=== PATIENT | male | born 1940 | race Caucasian/White ===

== ENCOUNTER 2019-04-27 14:15 | Emergency (ER) | payer MEDICARE, SELFPAY ==
[~2019-04-27] VITALS: Ht 170.2 cm; Wt 51.4 kg
[~2019-04-27 14:15] MED LIST: ALBU8HFA PO; LEVO500T89 PO; MULT-1179 PO; NICO-630 TD; NICO-631 TD; NICO-687 TD
[2019-04-27 14:21] VITALS: BP 153/58
[2019-04-27] MEDS ORDERED: PENI500T2 PO (14:58)
[2019-04-27] MEDS ORDERED: ACET-3067 PO (14:58)
[2019-04-27] MEDS ORDERED: ketorolac trometh inj. 60 MG/2 ML VIAL IM ONE (15:00)
== END 2019-04-27 15:20 | disposition home or self-care (01) ==
LOC: ER 14:15
DX: K02.9 Dental caries, unspecified (principal); K21.9 Gastro-esophageal reflux disease without esophagitis; F17.200 Nicotine dependence, unspecified, uncomplicated; Z79.899 Other long term (current) drug therapy
CPT/HCPCS: 96372; 99283; J1885

== ENCOUNTER 2020-07-22 12:41 | Emergency (ER) | payer MEDICARE ==
[~2020-07-22] VITALS: Ht 170.2 cm; Wt 59.1 kg
[2020-07-22 12:51] VITALS: BP 169/95
[2020-07-22] MEDS ORDERED: HYDR-3965 PO (14:37)
[2020-07-22] MEDS ORDERED: PENI500T2 PO (14:37)
== END 2020-07-22 15:07 | disposition home or self-care (01) ==
LOC: ER 12:42
DX: K05.10 Chronic gingivitis, plaque induced (principal); K08.89 Other specified disorders of teeth and supporting structures; Z79.2 Long term (current) use of antibiotics; Z79.899 Other long term (current) drug therapy; K21.9 Gastro-esophageal reflux disease without esophagitis; Z85.9 Personal history of malignant neoplasm, unspecified
CPT/HCPCS: 99283